=== PATIENT | male | born 1995 | race Caucasian/White ===

== ENCOUNTER 2024-04-01 10:35 | Emergency (ER) | payer OTHER, SELFPAY ==
[2024-04-01 10:42] VITALS: BP 150/85; PULSE 81; RESP 14; TEMP 36.1; O2SAT 98; BMI 33.9
--- NOTE | 2024-04-01 12:10 | ED.BACK ---
HPI - Back Pain/Injury <Jessy Wolf PA-C - Last Filed: 04/01/24 16:36> General Chief Complaint: Back Pain/Injury Stated Complaint: Herniated disk shifted to the right Time Seen by Provider: 04/01/24 11:14 History of Present Illness HPI Narrative: 28-year-old male with chronic lower back pain presents to the ED with an acute on chronic exacerbation of the lower back pain. Patient states that he was changing a stereo in his car yesterday, had to lean forward as well as twist and reached backwards while doing so. Patient states that he is experiencing lower back pain, is also leaning to the right side, since it is painful for him to stand up straight. No numbness, tingling, weakness, saddle paresthesias, urinary hesitancy. Patient is able to bear weight and walk. Patient took some ibuprofen last night, no medications today. Per patient, he originally injured his lower back in 2022, had an MRI which showed spinal stenosis and herniated discs. Patient states he re-injured his lower back in February of this year as well. Related Data Previous Rx's Medication Instructions Recorded methocarbamol 1,000 mg tablet 1,000 mg PO TID 5 days #15 tabs 04/01/24 Allergies Allergy/AdvReac Type Severity Reaction Status Date / Time No Known Drug Allergies Allergy Verified 04/01/24 10:43 Review of Systems <Jessy Wolf PA-C - Last Filed: 04/01/24 16:36> Constitutional Constitutional: Denies chills, Denies fatigue, Denies fever(s), Denies frequent falls, Denies lethargy and Denies weakness Eyes Eyes: Denies change in vision, Denies eye discharge, Denies irritation and Denies loss of vision ENT Ears, Nose, Mouth, and Throat: Denies change in voice, Denies dizziness, Denies neck pain, Denies sore throat and Denies throat swelling Cardiovascular Cardiovascular: Denies chest pain, Denies irregular heart rhythm, Denies lightheadedness, Denies palpitations, Denies dyspnea, Denies dyspnea on exertion and Denies orthopnea Respiratory Respiratory: Denies cough, Denies dyspnea, Denies dyspnea on exertion and Denies wheezing Gastrointestinal Gastrointestinal: Denies abdominal pain, Denies change in bowel habits, Denies diarrhea, Denies nausea and Denies vomiting Musculoskeletal Musculoskeletal: Reports back pain, Denies neck pain and Denies numbness Integumentary/Breasts Skin/Breast: Denies pruritus, Denies erythema, Denies rash and Denies wounds Neurologic Neurologic: Denies behavioral changes, Denies confusion, Denies dizziness, Denies frequent falls, Denies loss of vision, Denies numbness and Denies weakness Psychiatric Psychiatric: Denies anxiety, Denies behavioral changes, Denies confusion, Denies depression, Denies homicidal ideation and Denies suicidal ideation Endocrine Endocrine: Denies fatigue, Denies flushing and Denies palpitations Hematologic/Lymphatic Hematologic/Lymphatic: Denies easy bruising Allergic/Immunologic Allergic/Immunologic: Denies urticaria, Denies throat swelling and Denies wheezing Patient History <Jessy Wolf PA-C - Last Filed: 04/01/24 16:36> Social History Smoking Status: Unknown if ever smoked Smoking Status: Unknown if ever smoked alcohol intake frequency: holidays/special occasions only Substance Use Type: does not use Exam <Jessy Wolf PA-C - Last Filed: 04/01/24 16:36> Narrative Exam Narrative: Const General:?cooperative, healthy appearing and comfortable [facility] Head:?normal to inspection Ears:?hearing grossly normal bilaterally Nose:?external nose normal Face and sinus:?normal facial exam and sinuses nontender Mouth:?oral mucosae normal Throat:?posterior oropharynx normal Eyes General:?appearance normal, both eyes and all related structures Neck Neck:?normal visual inspection and no lymphadenopathy noted Resp Effort & Inspection:?normal respiratory effort Auscultation:?clear to auscultation bilaterally Cardio Rate:?regular rate Rhythm:?regular rhythm Musculoskeletal No midline tenderness to palpation. No paraspinal tenderness to palpation. Patient appears neurologically intact. Patient is leaning his torso to the right when standing due to pain. Neuro General:?patient alert, patient awake and patient oriented x3 Initial Vital Signs Initial Vital Signs: Vital Signs Temperature 97.0 F L 04/01/24 10:42 Pulse Rate 81 04/01/24 10:42 Respiratory Rate 14 04/01/24 10:42 Blood Pressure 150/85 H 04/01/24 10:42 Pulse Oximetry 98 04/01/24 10:42 Oxygen Delivery Method Room Air 04/01/24 10:42 <Chris Rasmussen MD - Last Filed: 04/01/24 18:50> Initial Vital Signs Initial Vital Signs: Vital Signs Temperature 97.0 F L 04/01/24 10:42 Pulse Rate 81 04/01/24 10:42 Respiratory Rate 14 04/01/24 10:42 Blood Pressure 150/85 H 04/01/24 10:42 Pulse Oximetry 98 04/01/24 10:42 Oxygen Delivery Method Room Air 04/01/24 10:42 Course <Jessy Wolf PA-C - Last Filed: 04/01/24 16:36> Orders Ordered: ED Orders 04/01/24 14:22 CT lumbar spine wo con Stat Discontinued Medications Cyclobenzaprine HCl (Cyclobenzaprine 10 Mg Tablet) 10 mg PO NOW ONE Stop: 04/01/24 14:23 Last Admin: 04/01/24 14:36 Dose: 10 mg Documented By: AR Dexamethasone (Dexamethasone 10 Mg/Ml Vial) 10 mg IV NOW ONE Stop: 04/01/24 11:15 Last Admin: 04/01/24 12:23 Dose: Not Given Documented By: AB Hydromorphone HCl (Hydromorphone 0.5 Mg Inj) 0.5 mg IV NOW ONE Stop: 04/01/24 11:15 Last Admin: 04/01/24 12:23 Dose: Not Given Documented By: AB Ketorolac Tromethamine (Ketorolac 30 Mg/Ml Vial) 15 mg IV NOW ONE Stop: 04/01/24 11:15 Last Admin: 04/01/24 12:23 Dose: Not Given Documented By: AB Ketorolac Tromethamine (Ketorolac 30 Mg/Ml Vial) 30 mg IM NOW ONE Stop: 04/01/24 14:23 Last Admin: 04/01/24 14:36 Dose: 30 mg Documented By: AR Ondansetron HCl (Ondansetron 4 Mg/2 Ml Inj) 4 mg IV NOW ONE Stop: 04/01/24 11:15 Last Admin: 04/01/24 12:23 Dose: Not Given Documented By: AB Vital Signs Vital signs: Vital Signs - 8 hr 04/01/24 15:49 Pulse Rate 68 Respiratory Rate 18 Blood Pressure 128/93 H Pulse Oximetry 97 Oxygen Delivery Method Room Air <Chris Rasmussen MD - Last Filed: 04/01/24 18:50> Orders Ordered: ED Orders 04/01/24 14:22 CT lumbar spine wo con Stat Discontinued Medications Cyclobenzaprine HCl (Cyclobenzaprine 10 Mg Tablet) 10 mg PO NOW ONE Stop: 04/01/24 14:23 Last Admin: 04/01/24 14:36 Dose: 10 mg Documented By: AR Dexamethasone (Dexamethasone 10 Mg/Ml Vial) 10 mg IV NOW ONE Stop: 04/01/24 11:15 Last Admin: 04/01/24 12:23 Dose: Not Given Documented By: AB Hydromorphone HCl (Hydromorphone 0.5 Mg Inj) 0.5 mg IV NOW ONE Stop: 04/01/24 11:15 Last Admin: 04/01/24 12:23 Dose: Not Given Documented By: AB Ketorolac Tromethamine (Ketorolac 30 Mg/Ml Vial) 15 mg IV NOW ONE Stop: 04/01/24 11:15 Last Admin: 04/01/24 12:23 Dose: Not Given Documented By: Ketorolac Tromethamine (Ketorolac 30 Mg/Ml Vial) 30 mg IM NOW ONE Stop: 04/01/24 14:23 Last Admin: 04/01/24 14:36 Dose: 30 mg Documented By: AR Ondansetron HCl (Ondansetron 4 Mg/2 Ml Inj) 4 mg IV NOW ONE Stop: 04/01/24 11:15 Last Admin: 04/01/24 12:23 Dose: Not Given Documented By: AB Vital Signs Vital signs: Vital Signs - 8 hr 04/01/24 15:49 Pulse Rate 68 Respiratory Rate 18 Blood Pressure 128/93 H Pulse Oximetry 97 Oxygen Delivery Method Room Air MDM - Back Pain/Injury <Jessy Wolf PA-C - Last Filed: 04/01/24 16:36> MDM Narrative Medical decision making narrative: 28-year-old male with chronic lower back pain presents to the ED with an acute on chronic exacerbation of the lower back pain. Concern for fracture/dislocation versus musculoskeletal sprain/strain versus spinal stenosis versus disc etiology versus other. Will obtain a CT scan of the lumbar spine, give ketorolac, Flexeril. Will reassess. Patient's symptoms improved with medications. CT scan showed a broad-based disc bulge and superimposed central to left-sided disc herniation at L4 -5 level causing severe central canal stenosis and left-sided neural foraminal narrowing. Moderate right-sided neural foraminal narrowing is also seen. There is a mild broad-based disc bulge at L3-4 level causing mild central canal stenosis and mild left-sided neural foraminal narrowing. No acute compression fracture or spondylolisthesis. No gross paraspinous soft tissue abnormalities. Discussed findings with patient. Recommend continuing ibuprofen, Tylenol, methocarbamol. Recommend follow-up with PCP and ortho. ED return precautions discussed with patient. Patient verbalized understanding. Medical records reviewed: Yes Discharge Plan Departure Patient Disposition: Home Clinical Impression: Strain of lumbar region Qualifiers: Encounter type: initial encounter Qualified Code(s): S39.012A - Strain of muscle, fascia and tendon of lower back, initial encounter Instructions: DI for Back Strain or Sprain Activity Restrictions/Additional Instructions: You were evaluated in the ED today for lower back pain. Your CT scan does not show any fractures or dislocations. It does show the pre-existing disc bulges and spinal stenosis. You may take methocarbamol for pain relief. You may also take 800 mg of ibuprofen every 8 hours with food. You may also take 1000 mg of Tylenol every 8 hours. Please follow-up with your PCP as soon as possible. Return to the ED if you have worsening symptoms, numbness, tingling, weakness. Prescriptions: New methocarbamol 1,000 mg tablet 1,000 mg PO TID 5 Days Qty: 15 0RF Stand Alone Forms: Patient Portal/API/Survey ED Sign-out <Chris Rasmussen MD - Last Filed: 04/01/24 18:50> Cosign ED Attending Eddie Attestation: I was immediately available in the department for consultation. This documentation has been reviewed and I agree with assessment and plan. Supervised by Chris Rasmussen MD
--- NOTE | 2024-04-01 12:58 | PC.NURSE ---
Pt has an L&I claim open from prior work injury. He has not done any follow up.
--- NOTE | 2024-04-01 14:22 | DI.CT.S_ITS ---
PROCEDURE: CT LUMBAR SPINE WO CON INDICATIONS: Lower back pain TECHNIQUE: Noncontrast 3 mm thick sections acquired from the T12 level to the sacrum. Sagittal and coronal reformats were constructed. For radiation dose reduction, the following was used: automated exposure control. COMPARISON: None. FINDINGS: Image quality: Excellent. Bones: There is normal bony alignment. No acute vertebral body compression fractures. No suspicious lytic or blastic bony lesions. No pars defects. T12-L1: Unremarkable. L1-L2: Unremarkable. L2-L3: Unremarkable. L3-L4: Mild degenerative endplate changes are seen. Broad-based disc bulge is noted with mild central canal stenosis and mild left-sided neural foraminal narrowing. L4-L5: Degenerative endplate changes are noted. Broad-based disc bulge and left paracentral disc herniation. Bilateral facet arthrosis is also seen. There is moderate to severe central canal stenosis and severe left-sided neural foraminal narrowing and narrowing of left neural recess. Moderate right-sided neural foraminal narrowing is also seen. L5-S1: Unremarkable. Soft tissues: No retroperitoneal masses or hematomas. Visualized aorta is normal in caliber. IMPRESSION: 1. Broad-based disc bulge and superimposed central to left-sided disc herniation at L4-5 level causing severe central canal stenosis and left-sided neural foraminal narrowing. Moderate right-sided neural foraminal narrowing is also seen. 2. Mild broad-based disc bulge at L3-4 level causing mild central canal stenosis and mild left-sided neural foraminal narrowing. 3. No acute compression fracture or spondylolisthesis. No gross paraspinous soft tissue abnormalities. Dictated by: Jeramie Carmona M.D. on 04/01/2024 at 15:16 Approved by: Jeramie Carmona M.D. on 04/01/2024 at 15:18
[2024-04-01] MEDS: CYCLOBENZAPRINE 10 MG TABLET PO (14:36)
[2024-04-01] MEDS: KETOROLAC 30 MG/ML VIAL IM (14:36)
[2024-04-01 15:49] VITALS: BP 128/93; PULSE 68; RESP 18; O2SAT 97
== END 2024-04-01 16:28 | disposition home or self-care (01) ==
PROVIDERS: Emergency Provider Student in an Organized Health Care Education/Training Program
DX: S39.012A Strain of muscle, fascia and tendon of lower back, initial encounter (principal); X50.1XXA Overexertion from prolonged static or awkward postures, initial encounter
CPT/HCPCS: 72131; 96372; 99283; 99284; J1885